=== PATIENT | male | born 1990 | race African-American/Black ===

== ENCOUNTER → 2019-04-24 | Outpatient (CLI) | payer OTHER ==
[~2019-04-24] MED LIST: DIATRIZOATE MEGL/DIATRIZOA SOD 30 ML BTL PO ONE; IOPAMIDOL 370 MG/ML 200 ML INFUS..BTL INJ ONE; SODIUM CHLORIDE 0.9% 50ML 50 ML ONE
--- NOTE | 2019-04-24 12:27 | Diagnostic Imaging Report ---
EXAM: CT Abdomen and Pelvis WITH intravenous contrast INDICATION: Right lower quadrant pain COMPARISON: None. TECHNIQUE: Abdomen and pelvis were scanned utilizing a multidetector helical scanner from the lung base to the pubic symphysis after administration of IV contrast. Coronal and sagittal reformations were obtained. Routine protocol was performed. Scan was performed when during portal venous phase. IV CONTRAST: 100mL of Isovue 370 ORAL CONTRAST: Gastrografin COMPLICATIONS: None RADIATION DOSE: Total DLP: 276.9 mGy*cm Dose modulation, iterative reconstruction, and/or weight based adjustment of the mA/kV was utilized to reduce the radiation dose to as low as reasonably achievable. FINDINGS: LOWER THORAX: Small cluster of tree-in-bud nodularity at the lateral left lower lobe of the lung. Otherwise, no focal consolidation or suspicious nodules of the lung bases. HEPATOBILIARY: There is a 4.5 x 5.1 cm enhancing mass at the dome of the liver with internal hypodensity possibly representing a central scar.. A smaller enhancing mass adjacent to the gallbladder (series 2 image 35 measures 3.1 x 2.8 cm. An additional segment 7 lesion measures 1.1 cm (series 2 image 23). Smooth liver surface contour. No biliary ductal dilatation. The gallbladder appears unremarkable. SPLEEN: No splenomegaly. PANCREAS: No focal masses or ductal dilatation. ADRENALS: No adrenal nodules. KIDNEYS/URETERS: No hydronephrosis, stones, or solid mass lesions. PELVIC ORGANS/BLADDER: Unremarkable. PERITONEUM / RETROPERITONEUM: No free air or fluid. LYMPH NODES: No lymphadenopathy. VESSELS: Unremarkable. GI TRACT: No distention or wall thickening. BONES AND SOFT TISSUES: No acute osseous injury. Left iliac sclerotic lesion likely represents a bone island. IMPRESSION: Multiple enhancing right liver masses, the largest of which measures 4.5 x 5.1 cm at the dome with internal hypodensity possibly representing a central scar versus internal necrosis. These findings are nonspecific on single phase contrast-enhanced CT imaging. Further evaluation is recommended with liver MRI. Small cluster of tree-in-bud nodularity at the lateral left lower lobe of the lung may represent prior aspiration and/or endobronchial infection. Signed by: Mario Donato MD on 04/24/2019 12:23 PM
== END ==
LOC: CT 10:25
PROVIDERS: ATTEND Internal Medicine
DX: K57.92 Diverticulitis of intestine, part unspecified, without perforation or abscess without bleeding (principal)
CPT/HCPCS: 74177; Q9967